=== PATIENT | female | born 1965 | race American Indian/Alaskan Native ===

== ENCOUNTER 2017-06-22 07:48 | Day surgery (SDC) | payer MEDICARE ==
[2017-06-22 08:46] LABS: Basophils % (Auto) 0.4 % (0.0-1.8); Eosinophils % (Auto) 0.1 % (0.0-4.3); Hematocrit 45.5 % (30.3-42.9); Hemoglobin 15.4 gm/dl (10.1-14.3); Lymphocytes # (Auto) 1.2 K/mm3 (1.2-5.4); Lymphocytes % (Auto) 14.8 % (13.4-35.0); Mean Corpuscular HGB Conc 34 % (30-34); Mean Corpuscular Hemoglobin 29 pg (28-32); Mean Corpuscular Volume 86 fl (79-97); Monocytes # (Auto) 0.1 K/mm3 (0.0-0.8); Monocytes % (Auto) 1.7 % (0.0-7.3); Platelet Count 308 K/mm3 (140-440); Red Cell Distribution Width 14.6 % (13.2-15.2)
[2017-06-22 08:57] LABS: INR 0.86 (0.87-1.13)
[2017-06-22] MEDS ORDERED: NACL 0.9% 500 ML 500 ML IV SCH (09:00)
[2017-06-22 09:11] LABS: BUN/Creatinine Ratio 24; Blood Urea Nitrogen 17 mg/dL (7-17); Calcium 9.4 mg/dL (8.4-10.2); Hemolysis Index 98
[2017-06-22] MEDS ORDERED: HEPARIN/NS 5000 UNIT/500ML(CATH LAB) 1,000 ML IR ONE (10:29)
[2017-06-22] MEDS ORDERED: HEPARIN 10,000 UNITS/10 ML ONE (10:29)
[2017-06-22] MEDS ORDERED: BENADRYL ONE (10:50)
[2017-06-22] MEDS: NITROGLYCERIN SYRINGE 3 ML ONE ×2 (10:53→10:59)
[2017-06-22] MEDS: VERSED ONE ×2 (10:54→10:58)
[2017-06-22] MEDS: SUBLIMAZE ONE ×2 (10:55→10:58)
[2017-06-22] MEDS: XYLOCAINE 2% INFILTRATI ONE ×2 (10:55→10:58)
[2017-06-22] MEDS: CALAN ONE ×2 (10:55→10:59)
--- NOTE | 2017-06-22 11:44 | Cardiac Catherization Report ---
CARDIAC CATHETERIZATION REFERRING PHYSICIAN: INDICATION FOR PROCEDURE: The patient is a pleasant 52-year-old female with recurrent chest pain despite abnormal stress test. She is referred for left heart catheterization. She is allergic to IODINE. She has been pretreated with steroids, H1 and H2 blockade. Risks, benefits, alternatives discussed at length prior to obtaining informed consent. PROCEDURE IN DETAIL: The patient was brought to the laborer rags in a postabsorptive state, prepped and draped in sterile fashion. Davy's test in right hand was normal. A 2 mL of 2% lidocaine used to anesthetize the right wrist. A standard 6-Togolese hydrophilic sheath used to cannulate the right radial artery via modified Seldinger technique. All exchanges were performed to exchange a J-tip guidewire. JL3.5 catheter used to engage the left main. No dampening or ventricularization. Cineangiography performed in all projections. JR4 catheter used to cross the aortic valve under fluoroscopic guidance. Left ventriculography from 30 GOMES and 30 SURINAMESE projections via hand injections, catheter flushed. Manual pullback performed with continuous pressure monitoring. Catheter used to engage the right coronary. No dampening or ventricularization. Cineangiography performed in all projections. Next, due to recurrent chest pain and no evidence of significant epicardial coronary disease proceeded with root aortography. Pigtail catheter was used in the SURINAMESE projection with power injector root aortography was performed. Next, catheter removed from the body over wire, sheath removed. Manual pressure used to achieve hemostasis. There were no complications. No evidence of allergic reaction. DATA: Aortic pressure is 160/90, LV pressure is 160. LVP of 20 mmHg. Left ventriculography revealed normal systolic performance with estimated ejection fraction of 55% to 60%. No evidence of aortic stenosis. CORONARY ANATOMY: This is a right dominant system. Right coronary is a moderate sized vessel, courses AV groove, distally bifurcates in the posterior descending and posterolateral branches. No discrete stenosis identified. Left main without significant disease, bifurcates left anterior descending and left circumflex. Left circumflex, moderate sized vessel, courses AV groove. No significant disease. Left anterior descending artery is a moderate sized vessel, courses anterior interventricular groove, wraps around the apex, no significant disease. Root aortography reveals normal contour, no evidence of dissection or penetrating aortic ulcer, no evidence of aortic insufficiency, normal great vessel anatomy. Moderate sedation was employed and directly monitored and administered by me using fentanyl and Versed. There was a total of 26 minutes of sedation overseen by me. CONCLUSIONS: 1. No angiographic evidence of significant epicardial coronary disease in this right dominant system. 2. Normal left ventricular systolic performance with estimated ejection fraction of 55% to 60%. 3. No evidence of aortic stenosis. 4. Root aortography is normal without evidence of dissection, penetrating aortic ulcer, or aortic insufficiency. At this point would continue primary and secondary risk factor modification. Blood pressure control. Follow up with Dr. Jeffrey in the office. Results of procedure were explained to the patient and family. All questions and concerns were addressed. JOB# [id number] CARA/RORO
[2017-06-22 13:33] VITALS: BP 130/78
--- NOTE | 2017-06-23 13:40 | Short Stay Summary ---
Short Stay Documentation Date of service: 06/23/17 - History H&P: obtained from office - Allergies and Medications Current Medications: Allergies acetaminophen [From Tylenol] Adverse Reaction (Verified 11/01/14 13:18) Shortness of Breath apple Adverse Reaction (Verified 11/01/14 13:18) Itching ibuprofen [From Motrin] Adverse Reaction (Verified 11/01/14 13:18) Nausea latex Adverse Reaction (Verified 11/01/14 13:18) Hives Latex, Natural Rubber Adverse Reaction (Verified 11/01/14 13:18) Rash morphine Adverse Reaction (Verified 11/01/14:18) Swelling Penicillins Adverse Reaction (Verified 11/01/14:18) Swelling povidone-iodine [From Betadine] Adverse Reaction (Verified 11/01/14:) Rash ranitidine HCl [From Zantac] Adverse Reaction (Verified 11/01/14:18) Nausea soap [From Betadine] Adverse Reaction (Verified 11/01/14:18) Rash Home Medications Medication Instructions Recorded Confirmed Last Taken Type diphenhydrAMINE [Benadryl CAP] 25 mg PO Q6HR 05/27/15 06/22/17 06/21/17 History Topiramate [Topamax TAB] 50 mg PO BID #60 tablet 05/29/15 06/22/17 06/21/17 Rx Dicyclomine [Bentyl] 20 mg PO QID 11/04/15 06/22/17 06/21/17 History Hydralazine HCl [Apresoline TAB] 50 mg PO Q8HR 11/04/15 06/22/17 06/22/17 06:30 History Omeprazole [PriLOSEC] 20 mg PO QDAY 11/04/15 06/22/17 06/21/17 History Albuterol Sulfate [Ventolin HFA] 2 puff IH Q4H PRN 12/15/15 06/22/17 06/21/17 History Amlodipine Besylate [Norvasc] 5 mg PO QDAY 06/22/17 06/22/17 06/22/17 06:30 History ISOSORBIDE MONOnitrate [Imdur ER] 60 mg PO QDAY 06/22/17 06/22/17 06/21/17 History predniSONE [Deltasone] 6 tab PO ONCE 06/22/17 06/22/17 06/22/17 06:30 History - Brief post op/procedure progress note Date of procedure: 06/22/17 Pre-op diagnosis: abnormal stress test Post-op diagnosis: same Procedure: LHC - see cath report Anesthesia: local Estimated blood loss: none Condition: stable - Disposition Condition at discharge: Good Disposition: DC-01 TO HOME OR SELFCARE - Discharge Diagnoses (1) Abnormal stress test Status: Chronic (2) Chest pain Status: Chronic Short Stay Discharge Plan Activity: advance as tolerated Diet: regular Follow up with: KARIE NOWAK MD [Primary Care Provider] - 7 Days Forms: [facility] PCI D/C Instructions, Work/School Excuse Out Patient
== END 2017-06-22 13:45 | disposition home or self-care (01) ==
LOC: CATHLABREC 07:48
PROVIDERS: ATTEND Internal Medicine
DX: R07.89 Other chest pain (principal); I10 Essential (primary) hypertension; G47.33 Obstructive sleep apnea (adult) (pediatric); E78.00 Pure hypercholesterolemia, unspecified; E66.9 Obesity, unspecified; Z68.35 Body mass index [BMI] 35.0-35.9, adult; Z87.891 Personal history of nicotine dependence; Z79.899 Other long term (current) drug therapy; Z88.1 Allergy status to other antibiotic agents; Z91.040 Latex allergy status; Z88.0 Allergy status to penicillin; Z88.8 Allergy status to other drugs, medicaments and biological substances; Z91.018 Allergy to other foods
CPT/HCPCS: 36415; 80048; 85025; 85610; 85730; 93005; 93010; 93458; 93567; 99156; C1894; J1200; J1644; J2250; J3010; J7040; Q9967

== ENCOUNTER 2021-10-19 18:20 | Emergency (ER) | payer MEDICARE ==
[2021-10-20] MEDS ORDERED: dexAMETHasone 20 MG/5 ML VIAL IM ONE (05:39)
[2021-10-20] MEDS ORDERED: ONDANSETRON 4 MG ODT TAB PO ONE (05:39)
[2021-10-20] MEDS ORDERED: HYDROmorphone 1 MG/1 ML INJ IM ONE (05:39)
--- NOTE | 2021-10-20 05:43 | Emergency Department Report ---
ED General Adult HPI - General Chief complaint: Pain General Stated complaint: LEFT LEG PAIN Source: patient Mode of arrival: Ambulatory Limitations: No Limitations - History of Present Illness Initial comments: Patient is a 56-year-old female with a history of fibromyalgia, diverticulitis, pancreatitis, chronic low back pain with sciatica, asthma and hypertension who presents to the ED with complaint of acute exacerbation of her chronic low back pain radiating to the left leg and the left thigh for the last 1 week. Patient states that she was evaluated with acupuncture treatment about 3 days ago and that thereafter the pain got worse. Patient states that her left thigh has been having burning sensation that radiates from her lower back and that she is unable to sleep because of worsening pain. Patient denies chest pain, shortness of breath, fever, chills, nausea and vomiting, numbness and tingling or weakness of lower extremities bilaterally, neck pain, cough, sore throat or abdominal pain, urinary or bowel incontinence and saddle paresthesia, fall or traumatic injury or heavy lifting. MD Complaint: Chronic low back pain; left thigh burning pain s/p accupuncture -: Gradual, year(s) (110) Location: back (lower), lower extremity (left thigh) Radiation: extremity (Left thigh and left lower leg), distal (Left thigh and left lower leg) Severity scale (0 -10): 8 Quality: aching, sharp Consistency: constant Improves with: none Worsens with: movement Associated Symptoms: denies other symptoms. denies: confusion, chest pain, cough, fever/chills, headaches, loss of appetite, malaise, rash, shortness of breath, syncope, weakness Treatments Prior to Arrival: none - Related Data Home Medications Medication Instructions Recorded Confirmed Last Taken diphenhydrAMINE [Benadryl CAP] 25 mg PO Q6HR 05/27/15 08/18/21 07/22/21 08:00 Hydralazine HCl [Apresoline TAB] 50 mg PO Q8HR 11/04/15 08/18/21 06/22/17 06:30 Omeprazole [PriLOSEC] 20 mg PO QDAY 11/04/15 08/18/21 08/17/21 08:00 Albuterol Sulfate [Ventolin HFA] 2 puff IH Q4H PRN 12/15/15 08/18/21 06/21/17 Amlodipine Besylate [Norvasc] 5 mg PO QDAY 06/22/17 08/18/21 08/17/21 08:00 Dicyclomine [Bentyl] 10 mg PO DAILY 08/18/21 08/18/21 08/17/21 Sucralfate [Carafate] 1 tab PO TID 08/18/21 08/18/21 08/17/21 Previous Rx's Medication Instructions Recorded Last Taken Type Famotidine [Pepcid] 20 mg PO DAILY tablet 08/21/21 Unknown Rx Phosphorus #1 [K-Phos Neutral] 250 mg PO QID tablet 08/21/21 Unknown Rx Topiramate [Topamax] 50 mg PO BID tablet 08/21/21 Unknown Rx diphenhydrAMINE [Benadryl CAP] 25 mg PO Q6H PRN capsule 08/21/21 Unknown Rx levoFLOXacin [Levaquin TAB] 500 mg PO QDAY #5 tablet 08/21/21 Unknown Rx methOCARBAMOL [Robaxin TAB] 750 mg PO Q8H PRN #30 tab 10/20/21 Unknown Rx oxyCODONE /ACETAMINOPHEN [Percocet 1 tab PO Q6HR PRN #10 tab 10/20/21 Unknown Rx 5/325 mg] predniSONE [Deltasone] 60 mg PO QDAY #15 tab 10/20/21 Unknown Rx Allergies Allergy/AdvReac Type Severity Reaction Status Date / Time acetaminophen [From Tylenol] AdvReac Shortness Verified 11/01/14 13:18 of Breath apple AdvReac Itching Verified 11/01/14 13:18 ibuprofen [From Motrin] AdvReac Nausea Verified 11/01/14 13:18 latex AdvReac Hives Verified 11/01/14 13:18 Latex, Natural Rubber AdvReac Rash Verified 11/01/14 13:18 morphine AdvReac Swelling Verified 11/01/14 13:18 Penicillins AdvReac Swelling Verified 11/01/14 13:18 povidone-iodine AdvReac Rash Verified 11/01/14 13:18 [From Betadine] ranitidine HCl [From Zantac] AdvReac Nausea Verified 11/01/14 13:18 soap [From Betadine] AdvReac Rash Verified 11/01/14 13:18 ED Review of Systems ROS: Stated complaint: LEFT LEG PAIN Other details as noted in HPI Constitutional: denies: chills, fever Eyes: denies: eye pain, eye discharge, vision change ENT: denies: ear pain, throat pain Respiratory: denies: cough, shortness of breath, wheezing Cardiovascular: denies: chest pain, palpitations Endocrine: no symptoms reported Gastrointestinal: denies: abdominal pain, nausea, vomiting, diarrhea Genitourinary: denies: urgency, dysuria, discharge Musculoskeletal: back pain (Low back pain), arthralgia (Left thigh pain). denies: joint swelling Skin: denies: rash, lesions Neurological: denies: headache, weakness, paresthesias Psychiatric: denies: anxiety, depression Hematological/Lymphatic: denies: easy bleeding, easy bruising ED Past Medical Hx - Past Medical History Hx Hypertension: Yes Hx Congestive Heart Failure: No Hx Diabetes: No Hx Asthma: Yes Additional medical history: sleep apnea, Diverticulosis, Pancreatitis, Fibromyalgia - Surgical History Hx Cholecystectomy: Yes (2011) Additional Surgical History: Lumbar puncture in 2012 from fluid on brain from sinus infection. partial Hysterectomy (2011) - Social History Smoking Status: Never Smoker - Medications Home Medications: Home Medications Medication Instructions Recorded Confirmed Last Taken Type diphenhydrAMINE [Benadryl CAP] 25 mg PO Q6HR 05/27/15 08/18/21 07/22/21 08:00 History Hydralazine HCl [Apresoline TAB] 50 mg PO Q8HR 11/04/15 08/18/21 06/22/17 06:30 History Omeprazole [PriLOSEC] 20 mg PO QDAY 11/04/15 08/18/21 08/17/21 08:00 History Albuterol Sulfate [Ventolin HFA] 2 puff IH Q4H PRN 12/15/15 08/18/21 06/21/17 History Amlodipine Besylate [Norvasc] 5 mg PO QDAY 06/22/17 08/18/21 08/17/21 08:00 History Dicyclomine [Bentyl] 10 mg PO DAILY 08/18/21 08/18/21 08/17/21 History Sucralfate [Carafate] 1 tab PO TID 08/18/21 08/18/21 08/17/21 History Famotidine [Pepcid] 20 mg PO DAILY tablet 08/21/21 Unknown Rx Phosphorus #1 [K-Phos Neutral] 250 mg PO QID tablet 08/21/21 Unknown Rx Topiramate [Topamax] 50 mg PO BID tablet 08/21/21 Unknown Rx diphenhydrAMINE [Benadryl CAP] 25 mg PO Q6H PRN capsule 08/21/21 Unknown Rx levoFLOXacin [Levaquin TAB] 500 mg PO QDAY #5 tablet 08/21/21 Unknown Rx methOCARBAMOL [Robaxin TAB] 750 mg PO Q8H PRN #30 tab 10/20/21 Unknown Rx oxyCODONE /ACETAMINOPHEN [Percocet 1 tab PO Q6HR PRN #10 tab 10/20/21 Unknown Rx 5/325 mg] predniSONE [Deltasone] 60 mg PO QDAY #15 tab 10/20/21 Unknown Rx ED Physical Exam - General Limitations: No Limitations General appearance: alert, in no apparent distress - Head Head exam: Present: atraumatic, normocephalic, normal inspection - Eye Eye exam: Present: normal appearance, PERRL, EOMI Pupils: Present: normal accommodation - ENT ENT exam: Present: normal exam, normal orophraynx, mucous membranes moist, TM's normal bilaterally, normal external ear exam - Neck Neck exam: Present: normal inspection, full ROM - Respiratory Respiratory exam: Present: normal lung sounds bilaterally. Absent: respiratory distress, wheezes, rales, chest wall tenderness, accessory muscle use, decreased breath sounds, prolonged expiratory - Cardiovascular Cardiovascular Exam: Present: regular rate, normal rhythm, normal heart sounds. Absent: systolic murmur, diastolic murmur, rubs, gallop - GI/Abdominal GI/Abdominal exam: Present: soft, normal bowel sounds. Absent: tenderness, guarding, rebound, hyperactive bowel sounds, hypoactive bowel sounds, organo megaly - Extremities Exam Extremities exam: Present: normal inspection, full ROM, tenderness (Palpable left thigh and left lower leg tenderness), normal capillary refill, joint swelling (Left knee joint tenderness and swelling). Absent: pedal edema, calf tenderness - Back Exam Back exam: Present: normal inspection, full ROM, tenderness (Palpable lumbosacral paraspinal musculoskeletal tenderness), muscle spasm, paraspinal tenderness. Absent: CVA tenderness (L), vertebral tenderness - Neurological Exam Neurological exam: Present: alert, oriented X3, CN II-XII intact, normal gait, reflexes normal - Psychiatric Psychiatric exam: Present: normal affect, normal mood - Skin Skin exam: Present: warm, dry, intact, normal color. Absent: rash ED Course Vital Signs 10/19/21 18:22 Temperature 98.9 F Pulse Rate 67 Respiratory 14 Rate Blood Pressure 128/64 O2 Sat by Pulse 98 Oximetry ED Medical Decision Making - Medical Decision Making This is a 56-year-old female with a history of fibromyalgia, diverticulitis, pancreatitis, chronic low back pain with sciatica, asthma and hypertension who presents to the ED with complaint of acute exacerbation of her chronic low back pain radiating to the left leg and the left thigh for the last 1 week. Patient states that she was evaluated with acupuncture treatment about 3 days ago and that thereafter the pain got worse. Patient states that her left thigh has been having burning sensation that radiates from her lower back and that she is unable to sleep because of worsening pain. In the ED, patient is alert and oriented x3 and is not in any distress. Patient was treated for pain in the ED. Patient is hemodynamically stable. Patient was discharged home on medications and advised to follow-up with her primary care physician in 7 to 10 days for reevaluation or return to the ED immediately if symptoms get worse. - Differential Diagnosis Chronic pain syndromes; chronic sciatica; chronic back pain; neuropathy; Critical care attestation.: If time is entered above; I have spent that time in minutes in the direct care of this critically ill patient, excluding procedure time. ED Disposition Clinical Impression: Muscle spasm of left lower extremity Chronic low back pain with left-sided sciatica Qualifiers: Back pain laterality: left Qualified Code(s): M54.42 - Lumbago with sciatica, left side; G89.29 - Other chronic pain Peripheral neuropathy Qualifiers: Peripheral neuropathy type: polyneuropathy, unspecified Qualified Code(s): G62.9 - Polyneuropathy, unspecified Disposition: 01 HOME / SELF CARE / HOMELESS Is pt being admited?: No Does the pt Need Aspirin: No Condition: Stable Instructions: Chronic Back Pain, [id number], Leg Cramps, Sciatica, [id number], Muscle Cramps and Spasms, [id number] Additional Instructions: Take medication with food, drink plenty of fluids and follow-up with your primar y care physician in 7 to 10 days for reevaluation. Return to the ED immediately if symptoms get worse. Prescriptions: predniSONE [Deltasone] 60 mg PO QDAY #15 tab oxyCODONE /ACETAMINOPHEN [Percocet 5/325 mg] 1 tab PO Q6HR PRN #10 tab PRN Reason: Pain , Severe (7-10) methOCARBAMOL [Robaxin TAB] 750 mg PO Q8H PRN #30 tab PRN Reason: Muscle Spasm Referrals: [facility] [Provider Group] - 3-5 Days Time of Disposition: 05:41 Print Language: AMERICAN
[2021-10-20] MEDS ORDERED: METOCLOPRAMIDE 10 MG TAB PO ONE (05:56)
[2021-10-20 06:08] VITALS: BP 139/77
== END 2021-10-20 06:04 | disposition home or self-care (01) ==
LOC: ED 18:20
DX: M54.42 Lumbago with sciatica, left side (principal); G62.9 Polyneuropathy, unspecified; M62.838 Other muscle spasm; I10 Essential (primary) hypertension; J45.909 Unspecified asthma, uncomplicated; Z98.890 Other specified postprocedural states; G47.30 Sleep apnea, unspecified; Z88.0 Allergy status to penicillin; Z88.5 Allergy status to narcotic agent; Z88.6 Allergy status to analgesic agent; Z88.8 Allergy status to other drugs, medicaments and biological substances; Z91.018 Allergy to other foods; Z91.040 Latex allergy status
CPT/HCPCS: 96372; 99282; J1100; J1170; J3490; Q0162

== ENCOUNTER 2022-02-09 14:02 | Emergency (ER) | payer MEDICARE ==
[2022-02-09 14:43] VITALS: BP 151/86
== END 2022-02-10 15:43 | disposition left against medical advice (07) ==
LOC: ED 14:02
DX: M25.561 Pain in right knee (principal); M25.551 Pain in right hip; Z53.21 Procedure and treatment not carried out due to patient leaving prior to being seen by health care provider